=== PATIENT | female | born 1995 | race American Indian/Alaskan Native ===

== ENCOUNTER 2017-05-02 12:50 | Emergency (ER) | payer MEDICAID, OTHER ==
[2017-05-02] MEDS ORDERED: TYLENOL PO ONE ×2 (13:03→20:23)
[2017-05-02] MEDS ORDERED: TYLENOL ONE (13:04)
[2017-05-02] MEDS ORDERED: GUAIFENESIN DM SYRUP PO ONE (14:10)
[2017-05-02] MEDS ORDERED: MOTRIN PO ONE (14:10)
[2017-05-02] MEDS ORDERED: NACL 0.9% 1000 ML 2,000 ML IV ONE (14:10)
--- NOTE | 2017-05-02 15:00 | Emergency Department Report ---
Chief Complaint: Upper Respiratory Infection Stated Complaint: POSSIBLE FLU Time Seen by Provider: 05/02/17 14:09 - HPI History of Present Illness: The patient's 22-year-old female presents for evaluation of flulike symptoms. The patient reports 3 days of an intermittently productive cough, generalized myalgias, and fever. The patient denies headache, neck pain or stiffness, paresthesias, focal motor weakness, blurry vision, ear pain, tinnitus, chest pain, hemoptysis, dyspnea, abdominal pain, confusion or altered mental status, or recent URI or diarrhea. - Exam Vital Signs: Vital Signs 05/02/17 05/02/17 05/02/17 12:59 14:06 14:50 Temperature 103.2 F H Pulse Rate 122 H Respiratory 18 16 16 Rate Blood Pressure 113/71 O2 Sat by Pulse 99 Oximetry Physical Exam: General: well-nourished, well-developed, no acute distress Head: Normocephalic, atraumatic Eyes: normal sclera ENT: Mucous membranes are pale and dry Neck: No neck stiffness, no cervical adenopathy Respiratory: Breath sounds equal bilaterally, no wheezing, rales, or rhonchi Cardio: S1 and S2 present, no murmurs, rubs, gallops, capillary refill is delayed Abdomen: Normoactive bowel sounds, soft abdomen, no tenderness Chest WALL/Back: No tenderness to palpation of the chest wall, no CVA tenderness with percussion Musc: No pitting edema Skin: No rash Neuro: no facial drooping, normal speech Psych: Normal affect MSE screening note: Focused history and physical exam performed. Due to findings the following was ordered: The patient given normal saline fluid boluses for treatment of dehydration. The patient is also given medicine for her elevated temperature and cough. ED Disposition for MSE Condition: Stable
--- NOTE | 2017-05-02 15:43 | XRay Report ---
AP CHEST: HISTORY: chest pain AP view of the chest demonstrates a normal mediastinal and cardiac contour with clear lungs and normal bony and soft tissue structures. IMPRESSION: Unremarkable AP chest.
--- NOTE | 2017-05-02 17:19 | Emergency Department Report ---
HPI - General Chief Complaint: Upper Respiratory Infection Time Seen by Provider: 05/02/17 14:09 - HPI HPI: The patient's 22-year-old female presents for evaluation of flulike symptoms. The patient reports 3 days of an intermittently productive cough, generalized myalgias, and fever. The patient denies headache, neck pain or stiffness, paresthesias, focal motor weakness, blurry vision, ear pain, tinnitus, chest pain, hemoptysis, dyspnea, abdominal pain, confusion or altered mental status, or recent URI or diarrhea. She reports generalized aching in at 8 out of 10. Nothing makes it better and nothing makes it worse. [id number]-jpwrtcy medication taken without any relief. Denies any urinary burning frequency or urgency. Denies any back pain. ED Past Medical Hx - Past Medical History Previous Medical History?: No Hx Hypertension: No Hx Heart Attack/AMI: No Hx Congestive Heart Failure: No Hx Diabetes: No Hx Deep Vein Thrombosis: No Hx Pulmonary Embolism: No Hx Liver Disease: No Hx Renal Disease: No Hx Sickle Cell Disease: No Hx Headaches / Migraines: No Hx Seizures: No Hx Asthma: No Hx COPD: No Hx Tuberculosis: No Hx HIV: No - Surgical History Past Surgical History?: No - Family History Family history: no significant - Social History Smoking Status: Never Smoker Substance Use Type: Non Opiate Pain - Medications Home Medications: Home Medications Medication Instructions Recorded Confirmed Last Taken Type Pnv with Ca,No.72/Iron/FA 1 tab PO DAILY 04/15/13 04/25/13 04/25/13 History [ Plus Tablet] Cetirizine HCl [ZyrTEC] 10 mg PO QAM 14 Days #14 capsule 05/02/17 Unknown Rx Fluticasone [Flonase] 1 spray NS QDAY 14 Days #1 bottle 05/02/17 Unknown Rx Ibuprofen [Motrin] 600 mg PO Q6H PRN #12 tablet 05/02/17 Unknown Rx Ondansetron [Zofran Odt] 4 mg PO Q8HR PRN #12 tab.rapdis 05/02/17 Unknown Rx Sulfamethoxazole/Trimethoprim 1 each PO BID 7 Days #14 tablet 05/02/17 Unknown Rx [Bactrim DS TAB] ED Review of Systems ROS: Stated complaint: POSSIBLE FLU Other details as noted in HPI Comment: All other systems reviewed and negative Constitutional: chills, fever Eyes: denies: eye pain, eye discharge ENT: congestion. denies: throat pain Respiratory: cough. denies: orthopnea, shortness of breath, SOB with exertion, SOB at rest, stridor, wheezing Cardiovascular: denies: chest pain, palpitations, dyspnea on exertion, edema, syncope, paroxysmal nocturnal dyspnea Gastrointestinal: denies: abdominal pain, nausea, vomiting, diarrhea, constipation, hematemesis, melena, hematochezia Genitourinary: denies: urgency, dysuria, hematuria, abnormal menses, dyspareunia Musculoskeletal: myalgia. denies: back pain, joint swelling, arthralgia Skin: denies: rash Neurological: denies: headache, weakness, numbness, paresthesias, confusion, abnormal gait, vertigo Physical Exam - Physical Exam Vital Signs: Vital Signs 05/02/17 05/02/17 05/02/17 12:59 14:06 14:50 Temperature 103.2 F H Pulse Rate 122 H Respiratory 18 16 16 Rate Blood Pressure 113/71 O2 Sat by Pulse 99 Oximetry Vital Signs 05/02/17 05/02/17 05/02/17 12:59 14:06 14:50 Temperature 103.2 F H Pulse Rate 122 H Respiratory 18 16 16 Rate Blood Pressure 113/71 Blood Pressure [Left] Blood Pressure [Right] O2 Sat by Pulse 99 Oximetry 05/02/17 05/02/17 21:31 21:33 Temperature 99.4 F Pulse Rate 100 H Respiratory 16 Rate Blood Pressure Blood Pressure 104/68 [Left] Blood Pressure 96/58 [Right] O2 Sat by Pulse 100 Oximetry General: This is a 22-year-old female well-nourished well-developed in no acute distress. Physical Exam: Head: Normocephalic, atraumatic, no abrasion, no bruising and no contusion. Eyes: Biateral pupils equal and reactive to light, bilateral EOM intact.. Bilateral conjunctival and sclera without injection, normal accommodation. No nystagmus Mouth: Moist, no pharyngeal exudate or erythema. No peritonsillar abscesses. Uvula is midline and oral airways patent. Ears: Bilateral TM congested without erythema. Bilateral EAC without any redness swelling or drainage. No mastoid bone tenderness Nose: Bilateral nasal turbinates congested with erythema and clear drainage. Maxillary and frontal sinuses non-tender to palpate. Neck: Supple, No Cervical adenopathy, full range of motion and no C-spine tenderness. No swelling or tracheal deviation normal reflexes Cardiovascular: S1, S2. Tachycardic ,Regular rhythm. No murmur. Capillary refill is less then 3 seconds. Lungs: Clear to auscultate bilaterally. No rhonchi, wheezes or rales. No chest wall tenderness. No chest contusion. No bruising to chest. MSK: Strength 5/5 in all extremities. No joint deformity or crepitus. Normal inspection. Full range of motion to all extremities. No laceration, abrasion or ecchymotic area noted. Abdomen: Non-tender to palpate in all quadrants, no guarding or rebound tenderness, positive bowel sounds in all quadrants. No CVA tenderness. No hernia, bruit or mass. No rigidity or distention. Extremities: No clubbing, cyanosis or edema. +2 pulses. No neurovascular compromise Skin: Clean, dry and intact. No rash or lesions. Neurological: GCS at 15, Pt is alert and oriented 3 speech is clear period. Bilateral hand format proofreader strong and equal. Normal gait. Negative Romberg and no pronator drift. Normal Reflexes. No motor or sensory deficit Back: No vertebral tenderness, no paraspinal tenderness. Ambulates without any difficulties. Psych: Normal mood and behavior ED Course Vital Signs 05/02/17 05/02/17 05/02/17 12:59 14:06 14:50 Temperature 103.2 F H Pulse Rate 122 H Respiratory 18 16 16 Rate Blood Pressure 113/71 O2 Sat by Pulse 99 Oximetry Vital Signs 05/02/17 05/02/17 05/02/17 12:59 14:06 14:50 Temperature 103.2 F H Pulse Rate 122 H Respiratory 18 16 16 Rate Blood Pressure 113/71 Blood Pressure [Right] O2 Sat by Pulse 99 Oximetry 05/02/17 21:31 Temperature 99.4 F Pulse Rate 100 H Respiratory 16 Rate Blood Pressure Blood Pressure 96/58 [Right] O2 Sat by Pulse 100 Oximetry Vital Signs 05/02/17 05/02/17 05/02/17 12:59 14:06 14:50 Temperature 103.2 F H Pulse Rate 122 H Respiratory 18 16 16 Rate Blood Pressure 113/71 Blood Pressure [Left] Blood Pressure [Right] O2 Sat by Pulse 99 Oximetry 05/02/17 05/02/17 21:31 21:33 Temperature 99.4 F Pulse Rate 100 H Respiratory 16 Rate Blood Pressure Blood Pressure 104/68 [Left] Blood Pressure 96/58 [Right] O2 Sat by Pulse 100 Oximetry - Reevaluation(s) Reevaluation #1: 05/02/17 19:18 Patient received 1 L of normal saline, Motrin 800 mg, Tylenol 650 mg for fever, chest x-ray revealed no acute cardiac deformity findings. Patient is stable. Reevaluation #2: 05/02/17 20:29 Patient found to have acute cystitis. test negative CBC and BMP is stable. Oral hydration started and to receive another dose of Tylenol and will recheck vital signs 05/02/17 21:30 Patient given Rocephin 1 g IM in emergency room for UTI. ED Medical Decision Making - Lab Data Result diagrams: 05/02/17 17:26 05/02/17 17:26 Lab Results 05/02/17 05/02/17 05/02/17 Range/Units 17:24 17:26 17:26 WBC 9.5 (4.5-11.0) K/mm3 RBC 4.89 (3.65-5.03) M/mm3 Hgb 11.7 (10.1-14.3) gm/dl Hct 35.7 (30.3-42.9) % MCV 73 L (79-97) fl MCH 24 L (28-32) pg MCHC 33 (30-34) % RDW 15.2 (13.2-15.2) % Plt Count 281 (140-440) K/mm3 Lymph % (Auto) 11.1 L (13.4-35.0) % [place] % (Auto) 11.6 H (0.0-7.3) % Eos % (Auto) 0.0 (0.0-4.3) % Baso % (Auto) 0.4 (0.0-1.8) % Lymph # 1.1 L (1.2-5.4) K/mm3 [place] # 1.1 H (0.0-0.8) K/mm3 Eos # 0.0 (0.0-0.4) K/mm3 Baso # 0.0 (0.0-0.1) K/mm3 Seg Neutrophils % 76.9 H (40.0-70.0) % Seg Neutrophils # 7.3 (1.8-7.7) K/mm3 Sodium 141 (137-145) mmol/L Potassium 4.0 (3.6-5.0) mmol/L Chloride 105.0 (98-107) mmol/L Carbon Dioxide 25 (22-30) mmol/L Anion Gap 15 mmol/L BUN 6 L (7-17) mg/dL Creatinine 0.8 (0.7-1.2) mg/dL Estimated GFR > 60 ml/min BUN/Creatinine Ratio 8 % Glucose 97 (65-100) mg/dL Calcium 7.9 L (8.4-10.2) mg/dL Urine Color (Yellow) Urine Turbidity (Clear) Urine pH (5.0-7.0) Ur Specific [place] (1.003-1.030) Urine Protein (Negative) mg/dL Urine Glucose (UA) (Negative) mg/dL Urine Ketones (Negative) mg/dL Urine Blood (Negative) Urine Nitrite (Negative) Urine Bilirubin (Negative) Urine Urobilinogen (<2.0) mg/dL Ur Leukocyte Esterase (Negative) Urine WBC (Auto) (0.0-6.0) /HPF Urine RBC (Auto) (0.0-6.0) /HPF Urine Bacteria (Auto) (Negative) /HPF Urine WBC Clumps /HPF Urine Mucus /HPF Urine HCG, Qual (Negative) Influenza A (Rapid) Negative (Negative) Influenza B (Rapid) Negative (Negative) 05/02/17 Range/Units 19:39 WBC (4.5-11.0) K/mm3 RBC (3.65-5.03) M/mm3 Hgb (10.1-14.3) gm/dl Hct (30.3-42.9) % MCV (79-97) fl MCH (28-32) pg MCHC (30-34) % RDW (13.2-15.2) % Plt Count (140-440) K/mm3 Lymph % (Auto) (13.4-35.0) % [place] % (Auto) (0.0-7.3) % Eos % (Auto) (0.0-4.3) % Baso % (Auto) (0.0-1.8) % Lymph # (1.2-5.4) K/mm3 [place] # (0.0-0.8) K/mm3 Eos # (0.0-0.4) K/mm3 Baso # (0.0-0.1) K/mm3 Seg Neutrophils % (40.0-70.0) % Seg Neutrophils # (1.8-7.7) K/mm3 Sodium (137-145) mmol/L Potassium (3.6-5.0) mmol/L Chloride (98-107) mmol/L Carbon Dioxide (22-30) mmol/L Anion Gap mmol/L BUN (7-17) mg/dL Creatinine (0.7-1.2) mg/dL Estimated GFR ml/min BUN/Creatinine Ratio % Glucose (65-100) mg/dL Calcium (8.4-10.2) mg/dL Urine Color Yellow (Yellow) Urine Turbidity Clear (Clear) Urine pH 6.0 (5.0-7.0) Ur Specific [place] 1.009 (1.003-1.030) Urine Protein 30 mg/dl (Negative) mg/dL Urine Glucose (UA) Neg (Negative) mg/dL Urine Ketones Neg (Negative) mg/dL Urine Blood Lg (Negative) Urine Nitrite Neg (Negative) Urine Bilirubin Neg (Negative) Urine Urobilinogen < 2.0 (<2.0) mg/dL Ur Leukocyte Esterase Lg (Negative) Urine WBC (Auto) > 182.0 H (0.0-6.0) /HPF Urine RBC (Auto) 38.0 (0.0-6.0) /HPF Urine Bacteria (Auto) 2+ (Negative) /HPF Urine WBC Clumps 3+ /HPF Urine Mucus Few /HPF Urine HCG, Qual Negative (Negative) Influenza A (Rapid) (Negative) Influenza B (Rapid) (Negative) Urine culture pending - Radiology Data Radiology results: report reviewed Chest x-ray reveals no acute cardiopulmonary processes - Medical Decision Making ED course: here reports she's been having upper respiratory symptoms with fever, cough. Laboratory findings CBC stable, BMP stable and urinalysis reveal patient with acute cystitis with hematuria. He was given Rocephin 1 g IM in emergency room for UTI. She had no adverse reaction test is negative. Influenza A and B-. Chest x-ray reveals no acute cardiopulmonary findings. Patient with upper respiratory infection with cough and congestion and urinary tract infection. She was given normal saline 1 L, Motrin 600 mg by mouth for fever and pain and Tylenol 650 mg by mouth. Tolerated in Oral liquids and still low-grade fever additional 500 mg by mouth in emergency room. She was given information on labs, x-ray and diagnosis and need to follow-up with primary care physician. She voiced understanding and discharged home in stable condition with prescription for Motrin, Zyrtec, Flonase Bactrim DS. Critical care attestation.: If time is entered above; I have spent that time in minutes in the direct care of this critically ill patient, excluding procedure time. ED Disposition Clinical Impression: Upper respiratory infection with cough and congestion, Acute cystitis with hematuria, Fever in adult, Musculoskeletal pain Disposition: TO HOME OR SELFCARE Is pt being admited?: No Does the pt Need Aspirin: No Condition: Stable Instructions: Fever in Adults (ED), Urinary Tract Infection in Women (ED), Musculoskeletal Pain (ED), Upper Respiratory Infection (ED) Additional Instructions: Please increase the fluid to 2-3 L of water and/or orange juice daily. Avoid drinking carbonated beverage Take Motrin as prescribed for fever and/or pain Bactrim DS for urinary tract infection Follow up with primary care physician in 2 days if he did not have one you can follow-up at [facility] Prescriptions: Cetirizine HCl [ZyrTEC] 10 mg PO QAM 14 Days #14 capsule Fluticasone [Flonase] 1 spray NS QDAY 14 Days #1 bottle Ibuprofen [Motrin] 600 mg PO Q6H PRN #12 tablet PRN Reason: pain and/or fever Ondansetron [Zofran Odt] 4 mg PO Q8HR PRN #12 tab.rapdis PRN Reason: Nausea And Vomiting Sulfamethoxazole/Trimethoprim [Bactrim DS TAB] 1 each PO BID 7 Days #14 tablet Referrals: [facility] [Outside] - 05/04/17 PRIMARY CARE [Primary Care Provider] - 05/04/17 Forms: Work/School Release Form(ED)
[2017-05-02 17:40] LABS: Basophils % (Auto) 0.4 % (0.0-1.8); Hematocrit 35.7 % (30.3-42.9); Hemoglobin 11.7 gm/dl (10.1-14.3); Lymphocytes # (Auto) 1.1 K/mm3 (1.2-5.4); Lymphocytes % (Auto) 11.1 % (13.4-35.0); Mean Corpuscular HGB Conc 33 % (30-34); Mean Corpuscular Volume 73 fl (79-97); Monocytes # (Auto) 1.1 K/mm3 (0.0-0.8); Monocytes % (Auto) 11.6 % (0.0-7.3); Platelet Count 281 K/mm3 (140-440); Red Blood Count 4.89 M/mm3 (3.65-5.03); Red Cell Distribution Width 15.2 % (13.2-15.2)
[2017-05-02 17:43] LABS: Mean Corpuscular Hemoglobin 24 pg (28-32)
[2017-05-02 17:59] LABS: BUN/Creatinine Ratio 8; Blood Urea Nitrogen 6 mg/dL (7-17); Calcium 7.9 mg/dL (8.4-10.2); Hemolysis Index 26
[2017-05-02 20:10] LABS: Bacteria,Urine 2+ /HPF (Negative); Bilirubin,Urine NEG (Negative); Blood,Urine LG (Negative); Color,Urine Yellow (Yellow); Mucus,Urine FEW /HPF; Urobilinogen,Urine < 2.0 mg/dL (<2.0)
[2017-05-02 20:13] LABS: WBC,Urine > 182.0 /HPF (0.0-6.0)
[2017-05-02 20:14] LABS: HCG Qualitative,Urine Negative (Negative)
[2017-05-02] MEDS ORDERED: XYLOCAINE 1% MPF 5 mL INFILTRATI ONE (20:26)
[2017-05-02] MEDS ORDERED: ROCEPHIN IM STA (20:26)
[2017-05-02 21:34] VITALS: BP 104/68
== END 2017-05-02 21:56 | disposition home or self-care (01) ==
LOC: ED 12:50
DX: J06.9 Acute upper respiratory infection, unspecified (principal); N30.01 Acute cystitis with hematuria
CPT/HCPCS: 36415; 71045; 80048; 81001; 81025; 85025; 87400; 96360; 96361; 96372; 99284; J0696; J7030